=== PATIENT | female | born 1990 ===

== ENCOUNTER 2023-04-07 07:50 | Day surgery (SDC) | payer OTHER ==
[~2023-04-07] VITALS: Ht 167.6 cm; Wt 59.0 kg
[~2023-04-07 07:50] MED LIST: INTEGRA F CAPS1 EACH PO
== END 2023-04-07 19:05 | disposition home or self-care (01) ==
LOC: CIR.AMB 07:50
PROVIDERS: ATTEND Obstetrics & Gynecology Gynecologic Oncology
DX: N87.1 Moderate cervical dysplasia (principal); N80.00 Endometriosis of the uterus, unspecified; N80.202 Endometriosis of left fallopian tube, unspecified depth; N83.291 Other ovarian cyst, right side; Z20.822 Contact with and (suspected) exposure to COVID-19; I10 Essential (primary) hypertension; D64.9 Anemia, unspecified

== ENCOUNTER 2024-06-21 07:41 | Inpatient (IN) | payer OTHER ==
[2024-06-15 09:45] LABS: HEMATOCRIT 45.3 % (36.0-45.00); HEMOGLOBIN 15.2 g/dL (12.0-15.00); MEAN CELL VOLUME 93.4 fL (80.00-100.00); MEAN CORPUSCULAR HEMOGLOBIN 31.3 pg (27.00-32.0); MEAN CORPUSCULAR HGB CONC 33.5 g/dl (32.0-36.0); PLATELET COUNT 175 K/uL (150-450); RED BLOOD COUNT 4.85 M/uL (4.00-6.00); RED CELL DISTRIBUTION WIDTH 13.6 % (11.5-14.5)
[2024-06-15 09:51] LABS: PH,URINE 5.5 (5.0-8.0); URINE APPEARANCE Clear; URINE BILIRRUBIN Negative (NEGATIVE); URINE BLOOD Small; URINE COLOR Yellow; URINE GLUCOSE Negative (NEGATIVE); URINE KETONE Negative (NEGATIVE); URINE LEUKOCYTE Negative; URINE NITRATE Negative; URINE PROTEIN Negative (NEGATIVE); URINE UROBILINOGEN 0.2 E.U./dl
[2024-06-15 09:53] LABS: URINE BACTERIA 178.8 uL (0.0-1933); URINE EPITHELIAL CELLS 5.8 uL (0.0-38.8); URINE RBC 40.9 uL (0.0-20.8); URINE WBC 2.9 uL (0.0-23.2)
[2024-06-15 10:04] LABS: INR 0.99; PARTIAL THROMBOPLASTIN TIME 27.4 SECONDS (22.0-34.0)
[2024-06-15 10:05] LABS: ALBUMIN 4.2 gm/dL (3.4-5.0); BILIRUBIN TOTAL 0.58 mg/dL (0.3-1.2); CREATININE SERUM 0.92 mg/dL (0.55-1.02); GFR 71.2; GLOBULINA 3.3 G/DL (2.4-3.5); POTASSIUM 4.46 mEq/L (3.5-5.1); TOTAL PROTEIN 7.5 gm/dL (6.4-8.2)
[2024-06-15 10:06] LABS: PROTHROMBIN TIME 10.4 SECONDS (9.0-11.5)
[~2024-06-21] VITALS: Ht 167.6 cm; Wt 63.5 kg
[~2024-06-21 07:41] MED LIST changes: +CAMILA0.35 MG PO; +LUPRON DEPOT3.75 M1 IM
[2024-06-21] MEDS ORDERED: CEFAZOLIN SODIUM 1,000 MG VIAL ONE ×2 (08:38→22:07)
[2024-06-21] MEDS ORDERED: POVIDONE-IODINE 118 ML BOTT TOP ONE (14:20)
[2024-06-21] MEDS ORDERED: THROMBIN,HU/FIBRINOGEN/CALCIUM 10 ML SYRINGE TOP ONE (16:17)
[2024-06-21] MEDS ORDERED: VISTASEAL DUAL APPICATOR 1 EACH APPL TOP ONE (16:17)
[2024-06-21] MEDS ORDERED: METHYLENE BLUE 50MG/10ML AMP IV ONE (16:30)
[2024-06-21] MEDS ORDERED: CEFAZOLIN SODIUM 1,000 MG VIAL IV ONE ×2 (17:00→22:45)
[2024-06-21] MEDS ORDERED: BUPIVACAINE HCL/Mpf 0.5% 10ML VIAL ONE (17:50)
[2024-06-21] MEDS ORDERED: ONDANSETRON HCL 2 MG/ML VIAL IV PRN (18:45)
[2024-06-21] MEDS ORDERED: RINGERS SOLUTION,LACTATED 1,000 ML IV SCH (18:45)
[2024-06-21 20:02] LABS: HEMOGLOBIN 12.9 g/dL (12.0-15.00); MEAN CELL VOLUME 91.1 fL (80.00-100.00); MEAN CORPUSCULAR HEMOGLOBIN 30.9 pg (27.00-32.0); MEAN CORPUSCULAR HGB CONC 33.9 g/dl (32.0-36.0); PLATELET COUNT 139 K/uL (150-450); RED BLOOD COUNT 4.17 M/uL (4.00-6.00); RED CELL DISTRIBUTION WIDTH 13.6 % (11.5-14.5)
[2024-06-21 20:26] LABS: CALCIUM 8.1 mg/dL (8.5-10.1); CREATININE SERUM 0.94 mg/dL (0.55-1.02); GFR 69.45; POTASSIUM 4.29 mEq/L (3.5-5.1)
[2024-06-21] MEDS ORDERED: KETOROLAC TROMETHAMINE 30 MG VIAL ONE (20:42)
[2024-06-21] MEDS ORDERED: KETOROLAC TROMETHAMINE 30 MG VIAL IV ONE (20:45)
[2024-06-21] MEDS ORDERED: FAMOTIDINE/PF 20 MG/2 ML VIAL IV SCH (21:00)
[2024-06-21] MEDS ORDERED: DOCUSATE SODIUM 100MG CAP PO SCH (21:00)
[2024-06-21] MEDS ORDERED: FAMOTIDINE/PF 20 MG/2 ML VIAL ONE (21:17)
[2024-06-21] MEDS ORDERED: CHLORHEXIDINE GLUCONATE 120 ML BOTTLE TOP ONE ×2 (21:41→22:45)
[2024-06-21] MEDS ORDERED: FUROsemide 20 MG/2 ML VIAL ONE (22:12)
[2024-06-21] MEDS ORDERED: FUROsemide 20 MG/2 ML VIAL IV ONE (23:00)
[2024-06-22] MEDS ORDERED: MORPHINE SULFATE 4 MG/ML CARTRIDGE IV SCH
[2024-06-22] MEDS ORDERED: KETOROLAC TROMETHAMINE 30 MG VIAL IV SCH (01:00)
[2024-06-22] MEDS ORDERED: CEFOXITIN SODIUM 2,000 MG VIAL IV SCH (01:00)
[2024-06-22] MEDS ORDERED: ONDANSETRON HCL 2 MG/ML VIAL ONE (02:42)
[2024-06-22] MEDS ORDERED: CEFOXITIN SODIUM 2,000 MG VIAL IV ONE (03:03)
[2024-06-22 03:18] LABS: HEMATOCRIT 37.4 % (36.0-45.00); HEMOGLOBIN 12.8 g/dL (12.0-15.00); MEAN CELL VOLUME 93.1 fL (80.00-100.00); MEAN CORPUSCULAR HEMOGLOBIN 31.7 pg (27.00-32.0); MEAN CORPUSCULAR HGB CONC 34.1 g/dl (32.0-36.0); PLATELET COUNT 144 K/uL (150-450); RED BLOOD COUNT 4.02 M/uL (4.00-6.00); RED CELL DISTRIBUTION WIDTH 13.1 % (11.5-14.5)
[2024-06-22 03:42] LABS: CALCIUM 8.2 mg/dL (8.5-10.1); CREATININE SERUM 1.04 mg/dL (0.55-1.02); GFR 61.81; POTASSIUM 4.55 mEq/L (3.5-5.1)
[2024-06-22] MEDS ORDERED: DOXYCYCLINE HYCLATE 100 MG CAPSULE PO SCH (09:00)
[2024-06-22] MEDS ORDERED: SIMETHICONE 125 MG CAPSULE PO SCH (09:00)
[2024-06-23 07:43] LABS: CREATININE SERUM 0.82 mg/dL (0.55-1.02); GFR 81.31; HEMATOCRIT 27.9 % (36.0-45.00); MEAN CELL VOLUME 91.3 fL (80.00-100.00); MEAN CORPUSCULAR HGB CONC 34.6 g/dl (32.0-36.0); POTASSIUM 4.35 mEq/L (3.5-5.1); RED BLOOD COUNT 3.06 M/uL (4.00-6.00); RED CELL DISTRIBUTION WIDTH 13.4 % (11.5-14.5)
[2024-06-23 09:48] LABS: HEMOGLOBIN 9.7 g/dL (12.0-15.00); MEAN CORPUSCULAR HEMOGLOBIN 31.6 pg (27.00-32.0); PLATELET COUNT 113 K/uL (150-450)
[2024-06-23] MEDS ORDERED: OxyCODONE HCL/APAP UD (PERCOCET) PO STA (12:55)
== END 2024-06-23 13:48 | disposition home or self-care (01) | DRG 742 ==
LOC: CIR.AMB 07:41 → OB/GYN 23:30
PROVIDERS: Urology; ADMIT Obstetrics & Gynecology; ATTEND Obstetrics & Gynecology
PROC: 0WBH4ZZ Excision of Retroperitoneum, Percutaneous Endoscopic Approach (ICD-10-PCS; 2024-06-21)
PROC: 0TQB0ZZ Repair Bladder, Open Approach (ICD-10-PCS; 2024-06-21)
PROC: 0T9B00Z Drainage of Bladder with Drainage Device, Open Approach (ICD-10-PCS; 2024-06-21)
PROC: 0UB94ZZ Excision of Uterus, Percutaneous Endoscopic Approach (ICD-10-PCS; principal; 2024-06-21 14:15)
PROC: 3E1P88Z Irrigation of Female Reproductive using Irrigating Substance, Via Natural or Artificial Opening Endoscopic (ICD-10-PCS; 2024-06-21 22:00)
DX: D25.9 Leiomyoma of uterus, unspecified (principal); N99.71 Accidental puncture and laceration of a genitourinary system organ or structure during a genitourinary system procedure; T81.89XA Other complications of procedures, not elsewhere classified, initial encounter; R31.0 Gross hematuria; N80.399 Endometriosis of the pelvic peritoneum, other specified sites, unspecified depth; N80.101 Endometriosis of right ovary, unspecified depth; Z20.822 Contact with and (suspected) exposure to COVID-19; Y65.8 Other specified misadventures during surgical and medical care

== ENCOUNTER 2024-07-03 09:42 | Outpatient (CLI) | payer OTHER | END 2024-07-03 09:46 | disposition home or self-care (01) | LOC: TOM 09:42 | PROVIDERS: ATTEND Obstetrics & Gynecology | DX: N99.518 Other cystostomy complication (principal); Z43.5 Encounter for attention to cystostomy ==